=== PATIENT | male | born 1950 ===

== ENCOUNTER 2024-05-30 17:18 | Outpatient (REF) | payer BC, SELFPAY ==
[2024-05-31 11:40] LABS: HCT 38.1 % (40.0-50.0); HGB 12.9 g/dL (13.5-17.5); MCH 31.2 pg (27.0-33.0); MCHC 33.9 % (32.0-36.0); MCV 92 fL (80-95); MPV 12.2 fL (8.0-11.0); RBC 4.13 10^6/uL (4.36-5.78); RDW 12.5 % (11.8-14.1); RDW-SD 42.2 fL; WBC 4.19 10^3/uL (4.4-10.8)
[2024-05-31 11:52] LABS: ALT 73 U/L (16-63); AST 56 U/L (15-37); Albumin 3.4 g/dL (3.4-5.0); Alkaline Phosphatase 210 U/L (46-116); Anion Gap 6.8 mmol/L (3-11); BUN 25 mg/dL (7-18); Bilirubin, Total 0.96 mg/dL (0.2-1.0); CO2 26.2 mmol/L (21.0-32.0); CREATININE 0.9 mg/dL (0.70-1.30); Calcium 8.8 mg/dL (8.5-10.1); Calculated LDL 78 mg/dL (<100); Chloride 107 mmol/L (98-107); Cholesterol 183 mg/dL (<200); Estimated GFR 90.74 (mL/min/1.73m2); Glucose 258 mg/dL (74-106); HDL Cholesterol 73 mg/dL (40-60); Potassium 3.9 mmol/L (3.5-5.1); Sodium 140 mmol/L (136-145); Total Protein 7.1 g/dL (6.4-8.2); Triglyceride 162 mg/dL (<150)
[2024-05-31 12:01] LABS: Platelet Count 76 10^3/uL (130-400)
== END 2024-05-30 17:19 | disposition home or self-care (01) ==
LOC: NCHCN 17:18
PROVIDERS: Visit Provider Family Medicine
DX: R42 Dizziness and giddiness (principal); Z13.220 Encounter for screening for lipoid disorders
CPT/HCPCS: 80053; 80061; 85027

== ENCOUNTER 2024-07-25 08:36 | Outpatient (REF) | payer BC, SELFPAY ==
[2024-07-25 15:10] LABS: HCT 37.7 % (40.0-50.0); HGB 12.6 g/dL (13.5-17.5); MCH 30.6 pg (27.0-33.0); MCHC 33.4 % (32.0-36.0); MCV 92 fL (80-95); MPV 11.6 fL (8.0-11.0); RBC 4.12 10^6/uL (4.36-5.78); RDW 12.7 % (11.8-14.1); RDW-SD 42.2 fL; WBC 3.23 10^3/uL (4.4-10.8)
[2024-07-25 15:24] LABS: ALT 64 U/L (16-63); AST 52 U/L (15-37); Albumin 3.3 g/dL (3.4-5.0); Alkaline Phosphatase 218 U/L (46-116); Anion Gap 10.2 mmol/L (3-11); BUN 25 mg/dL (7-18); Bilirubin, Total 0.54 mg/dL (0.2-1.0); CO2 23.8 mmol/L (21.0-32.0); CREATININE 0.9 mg/dL (0.70-1.30); Calcium 8.6 mg/dL (8.5-10.1); Chloride 106 mmol/L (98-107); Estimated GFR 90.74 (mL/min/1.73m2); Glucose 285 mg/dL (74-106); INR 1.1 (0.9-1.1); Potassium 4.5 mmol/L (3.5-5.1); Prothrombin Time 11.4 sec (9.1-11.1); Sodium 140 mmol/L (136-145); Total Protein 6.9 g/dL (6.4-8.2)
[2024-07-25 15:25] LABS: Platelet Count 82 10^3/uL (130-400)
[2024-07-26 10:18] LABS: AFP Tumor Marker 136.5 ng/mL (<8.1)
== END 2024-07-25 08:37 | disposition home or self-care (01) ==
LOC: NCHCN 08:36
PROVIDERS: Visit Provider Family Medicine
DX: R16.0 Hepatomegaly, not elsewhere classified (principal)
CPT/HCPCS: 80053; 85027; 82105; 85610

== ENCOUNTER 2024-12-02 11:48 | Outpatient (REF) | payer BC, SELFPAY ==
[2024-12-02 17:32] LABS: COMMENT (LAB VIEW ONLY) 98.94 mg/dL; Microalb ug/mg Crea 64.5 ug/mg Cr
== END 2024-12-02 11:49 | disposition home or self-care (01) ==
LOC: NCHCN 11:48
PROVIDERS: Visit Provider Family Medicine
DX: E11.9 Type 2 diabetes mellitus without complications (principal)
CPT/HCPCS: 82043; 82570

== ENCOUNTER 2025-03-19 14:34 | Outpatient (REF) | payer MEDICARE, SELFPAY ==
[2025-03-19 15:13] LABS: HCT 31.0 % (40.0-50.0); HGB 10.1 g/dL (13.5-17.5); MCH 28.9 pg (27.0-33.0); MCHC 32.6 % (32.0-36.0); MCV 89 fL (80-95); MPV 11.5 fL (8.0-11.0); Platelet Count 125 10^3/uL (130-400); RBC 3.50 10^6/uL (4.36-5.78); RDW 14.9 % (11.8-14.1); RDW-SD 48.1 fL; WBC 4.62 10^3/uL (4.4-10.8)
[2025-03-19 15:46] LABS: ALT 77 U/L (16-63); AST 81 U/L (15-37); Albumin 2.7 g/dL (3.4-5.0); Alkaline Phosphatase 260 U/L (46-116); Anion Gap 3.2 mmol/L (3-11); BUN 13 mg/dL (7-18); Bilirubin, Total 1.2 mg/dL (0.2-1.0); CO2 28.8 mmol/L (21.0-32.0); Calcium 8.3 mg/dL (8.5-10.1); Chloride 102 mmol/L (98-107); Estimated GFR 93.45 (mL/min/1.73m2); Glucose 225 mg/dL (74-106); Potassium 4.4 mmol/L (3.5-5.1); Sodium 134 mmol/L (136-145); Total Protein 6.5 g/dL (6.4-8.2)
== END 2025-03-19 14:35 | disposition home or self-care (01) ==
LOC: NCHCN 14:34
PROVIDERS: Visit Provider Family Medicine
DX: I85.11 Secondary esophageal varices with bleeding (principal); D64.9 Anemia, unspecified
CPT/HCPCS: 80053; 85027